=== PATIENT | female | born 1970 | race Caucasian/White ===

== ENCOUNTER 2025-05-10 15:44 | Emergency (ER) | payer BC, SELFPAY ==
[2025-05-10 15:47] VITALS: BP 171/103
[2025-05-10 16:28] VITALS: BMI 27.7
--- NOTE | 2025-05-10 16:28 | ED.GENMED ---
History of Present Illness
General
Chief Complaint: Abdominal Symptoms
Time Seen by Provider: 05/10/25 16:13
History of Present Illness
History of Present Illness:
54-year-old female with history of intestinal malrotation status post [place]'s procedure presents to the emergency department for evaluation of lower abdominal pain and diarrhea. She states that she was treated about 2 weeks ago for strep pharyngitis
with amoxicillin. Began with diarrhea initially after starting amoxicillin however symptoms did not improve, in the past 48 hours the diarrhea has worsened, she describes this as soft frequent bowel movements, not watery or bloody. Estimating
bowel movements on an hourly basis. Reporting increasingly worse lower abdominal pain. No fevers or night sweats. No nausea or vomiting. She has been off antibiotics for at least 5 days at this point
Review of Systems
Review of Systems
Allergies reviewed?: Yes
All Other Systems: ROS reviewed and negative except as documented in HPI and ROS
Phy Exam
Physical Exam
Physical Exam:
GEN: Well appearing, NAD, WDWN
HEENT: Oral mucosa moist, no scleral icterus
Cardiac: Regular rate
Lung: No respiratory distress, no tachypnea
Abdomen: Soft, severe lower abdominal tenderness diffusely, no focality, no rigidity or peritoneal signs
MSK: No gross deformity or injuries
Skin: Good color, no pallor or jaundice, no rashes
Neuro: AO x3, moves all extremities freely
Psych: Calm, cooperative
Course
Orders/Labs/Results
Orders:
Orders
05/10/25 16:28
CT Abd/Pel (IV only)-[facility] only Urgent
Comment:
Reason For Exam: lower abd pain, diarrhea, hx of malrotation
05/10/25 16:33
Complete Blood Count/With Diff Urgent
Comprehensive Metabolic Panel Urgent
05/10/25 18:20
Dicyclomine [Bentyl] 20 mg PO NOW STA
Abnormal Lab Results
05/10/25
16:33
WBC 17.8 H 10^3/uL
(4.8-10.8)
Abs Immat Gran (auto) 0.1 H 10^3/uL
(0-0.05)
Absolute Neuts (auto) 15.0 H 10^3/uL
(1.4-6.5)
Absolute Monos (auto) 0.7 H 10^3/uL
(0.1-0.6)
Neutrophils % 84.5 H %
(42.2-75.2)
Lymphocytes % 10.5 L %
(20.5-51.1)
Sodium 132 L mmol/L
(135-145)
BUN 6 L mg/dl
(7-17)
Glucose 114 H mg/dl
(70-99)
05/10/25 16:33
05/10/25 16:33
Vital Signs
Initial and Last Documented VS:
Initial Vital Signs
Temp Pulse Resp BP Pulse Ox
98.4 F 51 18 171/103 99
05/10/25 15:47 05/10/25 15:47 05/10/25 15:47 05/10/25 15:47 05/10/25 15:47
Last Documented Vital Signs
Temp Pulse Resp BP Pulse Ox
98.2 F 78 16 124/76 99
05/10/25 18:47 05/10/25 18:47 05/10/25 18:47 05/10/25 18:47 05/10/25 18:47
MDM/Problems Addressed
MDM/Problems Addressed:
The patient's imaging indicates that the pelvis fracture cannot be ruled out, the patient's persistent voluminous diarrhea for several days suggestive of an enteritis. C. difficile considered given recent antibiotic use however the description of
her stool makes this less likely. She is given orders for outpatient stool studies and encouraged to use supportive treatment and fluids, recommend clear liquids for the next 48 hours. Discussed return precautions and symptoms of bowel
obstruction. She has primary care follow-up on Wednesday
*Pulse Oximetry
SaO2: 99
Oxygen Mode of Delivery: Room air
Patient hypoxic: no
*Critical Care Note
Total Time (30-74mins, 75-104mins- exclusive of procedures): Not Applicable
ED Attending Note
-
Portions of this chart may have been created with voice recognition software.� Occasional wrong word or��sound alike� substitutions may have occurred due to the inherent limitations of voice recognition software.
Discharge Plan
Departure
Patient Disposition: Home (Routine Discharge)
Date of Disposition: 05/10/25
Time of Disposition: 18:20
Patient with high blood pressure during this ER visit?: No
Discharge Problem:
Enteritis
Instructions: Diarrhea in adults - ED (DC), Clear Liquid Diet
Prescriptions:
New
dicyclomine 20 mg tablet
20 mg PO TID Qty: 20 0RF
ondansetron 4 mg tablet,disintegrating
4 mg PO TIDPRN PRN (Reason: nausea/vomiting) Qty: 10 0RF
Referrals:
Tenthoff,Quiana Muro MD [Family Provider, Family Practice]
Activity Restrictions/Additional Instructions:
Please obtain stool studies at your earliest convenience
Use the medications provided for symptom relief
Clear liquid only diet for 48 hours, then resume normal diet
If your diarrhea stops, and you have worsening pain OR stop passing flatus, return to the ER immediately
Interventions
Interventions:
*Risk Screen - Suicide Last Done: 05/10/25 15:47
*General Assessment Last Done: 05/10/25 15:47
*Neglect/Abuse Screening Last Done: 05/10/25 15:47
*Nursing Disposition Last Done: 05/10/25 18:48
ZA-Kklprc-Ypxgkwopqy Assessment Last Done: 05/10/25 16:25
Discharge Date and Time
Discharge Date/Time: 05/10/25 18:49
Print Language: CITIZEN [place]
[2025-05-10 16:42] LABS: Hematocrit 39.0 % (37.0-47.0); Hemoglobin 13.3 g/dL (12.0-16.0); Mean Corp Hgb Conc. 34.1 g/dL (33.0-37.0); Mean Corpuscular Volume 87.1 fL (81.0-99.0); Nucleated Red Blood Cells % 0 %; Platelet Count 238 10^3/uL (130-400); Red Cell Dist. Width 12.6 % (11.5-14.5)
[2025-05-10 16:57] LABS: ALT (SGPT) 17 U/L (0-35); AST (SGOT) 19 U/L (14-36); Albumin 4.4 g/dl (3.5-5.0); Alkaline Phosphatase 58 U/L (38-126); Blood Urea Nitrogen 6 mg/dl (7-17); Calcium 9.3 mg/dl (8.4-10.2); Carbon Dioxide 22 mmol/L (22-30); Chloride 103 mmol/L (98-107); Estimated Creatinine Clearance 106 ml/min; Glucose 114 mg/dl (70-99); Potassium 3.7 mmol/L (3.5-5.1); Sodium 132 mmol/L (135-145); Total Protein 7.1 g/dl (6.3-8.2); eGFR > 60.00
[2025-05-10 17:35] VITALS: BP 128/81
[2025-05-10] MEDS: BENTYL 20 MG PO (18:37)
[2025-05-10 18:47] VITALS: BP 124/76
== END 2025-05-10 18:49 | disposition home or self-care (01) ==
LOC: EMR 15:44
PROVIDERS: Physician Assistant; EMERGENCY PHYSICIAN Emergency Medicine; FAMILY PHYSICIAN Family Medicine
DX: K52.9 Noninfective gastroenteritis and colitis, unspecified (principal)
CPT/HCPCS: 99284; 74177; 80053; 85025; Q9967